=== PATIENT | female | born 1955 | race Caucasian/White ===

== ENCOUNTER → 2019-04-24 | Outpatient (RCR) | payer MEDICARE, BC ==
--- NOTE | 2019-04-24 15:16 | NUR ---
Pt presents for clinical swallow evaluation, referred by PCP d/t reported dysphagia described as an intermittent globus sensation in pharyngoesophageal region w/ several unspecified solid consistencies. Evaluation completed w/ thin liquids, pureed solids, soft solids, and regular solids. Pt demonstrated adequate swallow function, w/ no s/sx aspiration, and did not c/o globus sensation during clinical exam. Oral motor exam was wnl on all tasks. Recommend that pt continue regular solids w/ use of extra condiments/sauces/gravies to assist w/ pharyngoesophageal clearance. Recommend upright positioning and liquid wash. Continue w/ behavioral GERD management strategies and Omeprazole Rx. Recommend Modified Barium Swallow Study (Cookie Swallow) to locate or rule out pharyngoesophageal residuals as possible cause of globus sensation vs symptoms of reflux. Addendum: 04/24/[address] [facility] Amended: Links added.
== END ==
LOC: M ST 13:10
PROVIDERS: ATTEND Family Medicine
DX: R13.10 Dysphagia, unspecified (principal)

== ENCOUNTER → 2021-09-01 | Outpatient (CLI) | payer MEDICARE, BC | LOC: M LABSMTC 10:26 | PROVIDERS: ATTEND Family Medicine | DX: Z20.822 Contact with and (suspected) exposure to COVID-19 (principal) | CPT/HCPCS: C9803; U0003 ==

== ENCOUNTER → 2023-02-25 | Outpatient (CLI) | payer MEDICARE, BC | LOC: M WUC 15:36 | PROVIDERS: ATTEND Family Medicine | DX: R53.83 Other fatigue (principal) ==

== ENCOUNTER → 2023-03-15 | Outpatient (CLI) | payer MEDICARE, BC | LOC: M WUC 10:57 | PROVIDERS: ATTEND Family Medicine | DX: R79.9 Abnormal finding of blood chemistry, unspecified (principal) ==

== ENCOUNTER → 2023-04-29 | Outpatient (CLI) | payer MEDICARE, BC ==
[2023-04-29 18:19] LABS: BASO # 0.1 10^3/uL (0.0-0.2); BASO % 0.9 % (0.0-1.0); EOS # 0.2 10^3/uL (0.0-0.5); EOS % 2.7 % (0.0-3.0); HEMATOCRIT 36.8 % (36.0-47.0); HEMOGLOBIN 11.5 g/dl (12.0-15.5); LYMPH # 1.4 10^3/uL (1.5-5.0); LYMPH % 21.8 % (24.0-44.0); MEAN CORPUSCULAR HEMOGLOBIN 29.6 pg (27.0-33.0); MEAN CORPUSCULAR HGB CONC 31.3 g/dl (32.0-36.5); MEAN CORPUSCULAR VOLUME 94.6 fl (80.0-96.0); MONO # 0.5 10^3/uL (0.0-0.8); MONO % 6.9 % (2.0-8.0); NEUTROPHILS # 4.4 10^3/uL (1.5-8.5); NEUTROPHILS % 67.4 % (36.0-66.0); PLATELET COUNT, AUTOMATED 243 10^3/uL (150-450); RED BLOOD COUNT 3.89 10^6/uL (4.00-5.40); WHITE BLOOD COUNT 6.6 10^3/uL (4.0-10.0)
[2023-04-29 18:46] LABS: FERRITIN 30.8 NG/ML (7.3-270.7); PERCENT SATURATION 19.4 % (13.2-45.0)
== END ==
LOC: M WUC 11:05
PROVIDERS: ATTEND Family Medicine
DX: E61.1 Iron deficiency (principal)

== ENCOUNTER → 2023-06-03 | Outpatient (CLI) | payer MEDICARE, BC ==
[2023-06-03 16:57] LABS: BASO % 0.6 % (0.0-1.0); EOS # 0.2 10^3/uL (0.0-0.5); EOS % 2.8 % (0.0-3.0); HEMATOCRIT 36.3 % (36.0-47.0); HEMOGLOBIN 11.7 g/dl (12.0-15.5); LYMPH # 1.6 10^3/uL (1.5-5.0); LYMPH % 25.8 % (24.0-44.0); MEAN CORPUSCULAR HEMOGLOBIN 29.8 pg (27.0-33.0); MEAN CORPUSCULAR HGB CONC 32.2 g/dl (32.0-36.5); MEAN CORPUSCULAR VOLUME 92.4 fl (80.0-96.0); MONO # 0.5 10^3/uL (0.0-0.8); MONO % 7.7 % (2.0-8.0); NEUTROPHILS % 62.8 % (36.0-66.0); PLATELET COUNT, AUTOMATED 221 10^3/uL (150-450); RED BLOOD COUNT 3.93 10^6/uL (4.00-5.40); WHITE BLOOD COUNT 6.3 10^3/uL (4.0-10.0)
[2023-06-03 17:24] LABS: PERCENT SATURATION 23.5 % (13.2-45.0)
[2023-06-03 17:27] LABS: FERRITIN 48.2 NG/ML (7.3-270.7)
== END ==
LOC: M WUC 10:51
PROVIDERS: ATTEND Family Medicine
DX: R79.9 Abnormal finding of blood chemistry, unspecified (principal)

== ENCOUNTER → 2024-06-05 | Outpatient (CLI) | payer MEDICARE, BC | LOC: M PLAIMG 07:14 | PROVIDERS: ATTEND Family Medicine | DX: M51.16 Intervertebral disc disorders with radiculopathy, lumbar region (principal); M43.16 Spondylolisthesis, lumbar region ==